=== PATIENT | male | born 1940 | race Asian ===

== ENCOUNTER 2020-11-16 18:27 | Inpatient (IN) | payer OTHER ==
[2020-11-16 20:34] LABS: BASO % 0.2 % (0-2.0); EOS % 1.5 % (0-4.5); HEMATOCRIT 48.4 % (35.4-49); HEMOGLOBIN 16.5 GM/dL (11.7-16.9); LYMPH % 30.3 % (8-40); MCH 30.3 pg (25.7-33.7); MCHC 34.1 g/dl (32.0-35.9); MEAN CELL VOLUME 88.9 fl (80-96); MEAN PLT VOLUME 9.1 fl (7.5-11.1); MONO % 6.7 % (3.8-10.2); NEUT % 61.3 % (42.8-82.8); PLATELET COUNT 249 K/MM3 (134-434); RBC 5.45 M/mm3 (4.00-5.60); RDW 13.6 % (11.9-15.9); WHITE BLOOD COUNT 9.8 K/mm3 (4.0-10.0)
[2020-11-16 20:48] LABS: CHLORIDE 103 mmol/L (98-107); POTASSIUM 4.7 mmol/L (3.5-5.1); SODIUM 141 mmol/L (136-145)
[2020-11-16 20:50] LABS: CALCIUM 9.6 mg/dL (8.5-10.1)
[2020-11-16 20:51] LABS: ANION GAP 7 MMOL/L (8-16); BLOOD UREA NITROGEN 25.9 mg/dL (7-18); CO2 30 mmol/L (21-32); GLUCOSE,RANDOM 101 mg/dL (74-106)
[2020-11-16 20:54] LABS: CREATININE 1.1 mg/dL (0.55-1.3); SGOT/AST 35 U/L (15-37); SGPT/ALT 30 U/L (13-61)
[2020-11-16 20:55] LABS: BILIRUBIN,TOTAL 0.9 mg/dL (0.2-1)
[2020-11-16 20:56] LABS: TOT PROT 7.7 g/dl (6.4-8.2)
[2020-11-16 20:57] LABS: ALK PHOS 81 U/L (45-117)
[2020-11-16] MEDS ORDERED: ACETAMINOPHEN 1000 MG/100 ML VIAL (NON FORMULARY) IVPB ONE (21:57)
[2020-11-16] MEDS ORDERED: FAMOTIDINE 20 MG/50 ML IVPB 20 MG/50 ML MG IVPB ONE ×2 (21:57→22:02)
[2020-11-16] MEDS ORDERED: ACETAMINOPHEN INJECTION 100 ML IVPB ONE (22:02)
[2020-11-16 22:06] LABS: EPI CELLS 5 /uL (0-25.1); HYALINE CASTS 1 /uL (0-3.1); URINE APPEARANCE CLEAR; URINE BACTERIA 186 /uL (0-1359); URINE BILIRUBIN NEGATIVE (NEGATIVE); URINE COLOR YELLOW; URINE GLUCOSE (UA) NEGATIVE (NEGATIVE); URINE KETONE NEGATIVE (NEGATIVE); URINE LEUK ESTERASE 3+ (NEGATIVE); URINE NITRITE NEGATIVE (NEGATIVE); URINE PROTEIN NEGATIVE (NEGATIVE); URINE RBC 18 /uL (0-23.9); URINE UROBILINOGEN 0.2 mg/dL (0.2-1.0); URINE WBC 517 /uL (0-25.8)
[2020-11-16] MEDS ORDERED: SODIUM CHLORIDE 1,000 ML IV SCH (22:45)
[2020-11-16] MEDS ORDERED: ONDANSETRON 4 MG/2 ML VIAL IVPB ONE (23:44)
[2020-11-16] MEDS ORDERED: LIDOCAINE VISCOUS 2% ORAL/TOP 20 ML UNIT-DOSE CUP MM ONE (23:44)
[2020-11-16] MEDS ORDERED: ONDANSETRON 4 MG/2 ML VIAL ONE (23:48)
[2020-11-16] MEDS ORDERED: LIDOCAINE HCL 2% JELLY 10 ML CARTRIDGE ONE ×2 (23:48→23:49)
[2020-11-17] MEDS ORDERED: SODIUM CHLORIDE 1,000 ML IV SCH ×2 (02:30→13:43)
[2020-11-17 08:09] LABS: CHLORIDE 104 mmol/L (98-107); POTASSIUM 4.2 mmol/L (3.5-5.1); SODIUM 139 mmol/L (136-145)
[2020-11-17 08:11] LABS: ALBUMIN 3.6 g/dl (3.4-5.0); ANION GAP 8 MMOL/L (8-16); CALCIUM 9.5 mg/dL (8.5-10.1); CO2 28 mmol/L (21-32); MAGNESIUM 2.1 mg/dL (1.8-2.4)
[2020-11-17 08:12] LABS: BLOOD UREA NITROGEN 20.8 mg/dL (7-18); GLUCOSE,RANDOM 99 mg/dL (74-106)
[2020-11-17 08:14] LABS: CREATININE 1.1 mg/dL (0.55-1.3); SGOT/AST 28 U/L (15-37); SGPT/ALT 27 U/L (13-61)
[2020-11-17 08:15] LABS: CHOLESTEROL 141 mg/dL (50-200)
[2020-11-17 08:16] LABS: LDL CHOLESTEROL (ONLY SJRH) 66 mg/dL (5-100); TOT PROT 6.9 g/dl (6.4-8.2); TRIGLYCERIDES 62 mg/dL (0-150)
[2020-11-17 08:17] LABS: BILIRUBIN,TOTAL 1.1 mg/dL (0.2-1)
[2020-11-17 08:18] LABS: ALK PHOS 76 U/L (45-117); HDL CHOLESTEROL 61 mg/dL (40-60)
[2020-11-17] MEDS ORDERED: cefTRIAXone SODIUM 1 GM VIAL ONE (09:30)
[2020-11-17] MEDS ORDERED: DEXTROSE 5%-WATER - 50 ML IVPB ONE (09:31)
[2020-11-17] MEDS: ENOXAPARIN NA (PORCINE) 40 MG/0.4 ML DISP.SYRIN SQ SCH (10:04)
[2020-11-17] MEDS: CEFTRIAXONE 1 GM in DEXTROSE 5%-WATER - 50 ML IVPB SCH (10:04)
[2020-11-17 10:26] LABS: BASO % 0.2 % (0-2.0); EOS % 0.6 % (0-4.5); HEMATOCRIT 46.9 % (35.4-49); HEMOGLOBIN 15.9 GM/dL (11.7-16.9); LYMPH % 15.7 % (8-40); MCH 30.1 pg (25.7-33.7); MCHC 33.9 g/dl (32.0-35.9); MEAN CELL VOLUME 88.9 fl (80-96); MEAN PLT VOLUME 9.1 fl (7.5-11.1); MONO % 5.3 % (3.8-10.2); NEUT % 78.2 % (42.8-82.8); PLATELET COUNT 242 K/MM3 (134-434); RBC 5.28 M/mm3 (4.00-5.60); RDW 13.5 % (11.9-15.9); WHITE BLOOD COUNT 12.1 K/mm3 (4.0-10.0)
[2020-11-17 10:33] LABS: INR 1.14 (0.83-1.09); PROTHROMBIN TIME (PATIENT) 13.7 SEC (9.7-13.0)
[2020-11-17 10:36] LABS: ACTIVATED PTT 31.7 SECONDS (25.2-36.5)
[2020-11-17 12:25] VITALS: BMI 19.9
[2020-11-17] MEDS ORDERED: LEVOTHYROXINE NA 25 MCG TABLET (FP) PO SCH (13:45)
[2020-11-17] MEDS ORDERED: PATIENT'S OWN MEDICATION (NON-FORMULARY) (Irbesartan [Irbesartan] 150 MG Tablet) PO SCH (13:45)
[2020-11-17] MEDS: DEXTROSE 5%-NORMAL SALINE 1,000 ML IV SCH (16:45)
[2020-11-17] MEDS: LEVOTHYROXINE SODIUM 100 MCG VIAL IVPUSH SCH (18:42)
[2020-11-17] MEDS: ROSUVASTATIN CA 10 MG TABLET (FP) PO SCH (21:05)
[2020-11-18] MEDS: LEVOTHYROXINE SODIUM 100 MCG VIAL IVPUSH SCH (06:14)
[2020-11-18 07:24] LABS: BASO % 0.4 % (0-2.0); EOS % 3.4 % (0-4.5); HEMATOCRIT 44.7 % (35.4-49); HEMOGLOBIN 15.2 GM/dL (11.7-16.9); LYMPH % 39.1 % (8-40); MCH 30.4 pg (25.7-33.7); MCHC 34.1 g/dl (32.0-35.9); MEAN CELL VOLUME 89.4 fl (80-96); MEAN PLT VOLUME 8.9 fl (7.5-11.1); MONO % 6.2 % (3.8-10.2); NEUT % 50.9 % (42.8-82.8); PLATELET COUNT 226 K/MM3 (134-434); RDW 13.5 % (11.9-15.9); WHITE BLOOD COUNT 7.3 K/mm3 (4.0-10.0)
[2020-11-18 07:53] LABS: POTASSIUM 4.2 mmol/L (3.5-5.1)
[2020-11-18 08:11] LABS: TOT PROT 6.6 g/dl (6.4-8.2)
[2020-11-18 08:40] LABS: ALBUMIN 3.3 g/dl (3.4-5.0); BLOOD UREA NITROGEN 16.7 mg/dL (7-18); MAGNESIUM 2.1 mg/dL (1.8-2.4)
[2020-11-18 08:41] LABS: CALCIUM 9.1 mg/dL (8.5-10.1)
[2020-11-18 08:44] LABS: CREATININE 1.1 mg/dL (0.55-1.3); PHOSPHOROUS 4.1 mg/dL (2.5-4.9)
[2020-11-18 08:45] LABS: BILIRUBIN,TOTAL 1.3 mg/dL (0.2-1)
[2020-11-18] MEDS ORDERED: cefTRIAXone SODIUM 1 GM VIAL ONE (09:01)
[2020-11-18] MEDS ORDERED: DEXTROSE 5%-WATER - 50 ML IVPB ONE (09:01)
[2020-11-18] MEDS: CEFTRIAXONE 1 GM in DEXTROSE 5%-WATER - 50 ML IVPB SCH (11:22)
[2020-11-18] MEDS: ENOXAPARIN NA (PORCINE) 40 MG/0.4 ML DISP.SYRIN SQ SCH (11:23)
[2020-11-18] MEDS: LOSARTAN POTASSIUM 50 MG TABLET PO SCH (11:23)
[2020-11-18] MEDS: LEVOTHYROXINE NA 25 MCG TABLET (FP) PO SCH (13:37)
[2020-11-18] MEDS ORDERED: CEFTRIAXONE 1 GM in DEXTROSE 5%-WATER - 50 ML IVPB SCH (16:00)
[2020-11-18] MEDS: DEXTROSE 5%-NORMAL SALINE 1,000 ML IV SCH (20:06)
[2020-11-18] MEDS: ROSUVASTATIN CA 10 MG TABLET (FP) PO SCH (20:59)
[2020-11-18] MEDS ORDERED: MELATONIN 5 MG TABLETS PO ONE (23:06)
[2020-11-19] MEDS: LEVOTHYROXINE NA 25 MCG TABLET (FP) PO SCH (05:59)
[2020-11-19 06:40] VITALS: BP 109/71; PULSE 66; TEMP 98.4
[2020-11-19] MEDS ORDERED: LEVOTHYROXINE NA 25 MCG TABLET (FP) PO SCH (07:00)
[2020-11-19 07:39] LABS: BASO % 0.7 % (0-2.0); HEMATOCRIT 44.8 % (35.4-49); HEMOGLOBIN 15.1 GM/dL (11.7-16.9); LYMPH % 44.8 % (8-40); MCHC 33.8 g/dl (32.0-35.9); MEAN CELL VOLUME 88.8 fl (80-96); MEAN PLT VOLUME 9.1 fl (7.5-11.1); MONO % 7.6 % (3.8-10.2); NEUT % 43.9 % (42.8-82.8); PLATELET COUNT 242 K/MM3 (134-434); RBC 5.05 M/mm3 (4.00-5.60); RDW 13.4 % (11.9-15.9); WHITE BLOOD COUNT 6.7 K/mm3 (4.0-10.0)
[2020-11-19 08:07] LABS: ALBUMIN 3.5 g/dl (3.4-5.0); BLOOD UREA NITROGEN 14.5 mg/dL (7-18); CALCIUM 9.1 mg/dL (8.5-10.1); MAGNESIUM 2.2 mg/dL (1.8-2.4)
[2020-11-19 08:09] LABS: TOT PROT 6.7 g/dl (6.4-8.2)
[2020-11-19 08:10] LABS: CREATININE 1.1 mg/dL (0.55-1.3)
[2020-11-19 08:11] LABS: PHOSPHOROUS 4.3 mg/dL (2.5-4.9)
[2020-11-19 08:14] LABS: BILIRUBIN,TOTAL 1.1 mg/dL (0.2-1)
[2020-11-19] MEDS ORDERED: cefTRIAXone SODIUM 1 GM VIAL ONE (08:34)
[2020-11-19] MEDS ORDERED: DEXTROSE 5%-WATER - 50 ML IVPB ONE (08:35)
[2020-11-19] MEDS: LOSARTAN POTASSIUM 50 MG TABLET PO SCH ×2 (08:49→09:48)
[2020-11-19] MEDS: CEFTRIAXONE 1 GM in DEXTROSE 5%-WATER - 50 ML IVPB SCH ×2 (08:49→09:03)
[2020-11-19] MEDS: ENOXAPARIN NA (PORCINE) 40 MG/0.4 ML DISP.SYRIN SQ SCH (09:03)
== END 2020-11-19 10:00 | disposition home or self-care (01) | DRG 389 ==
LOC: JER 18:27 → JERBED 23:59 → J7W 11-17 06:45
PROVIDERS: ADMIT Internal Medicine; ATTEND Internal Medicine
PROC: 0D9670Z Drainage of Stomach with Drainage Device, Via Natural or Artificial Opening (ICD-10-PCS; principal; 2020-11-16)
DX: K56.50 Intestinal adhesions [bands], unspecified as to partial versus complete obstruction (principal); N39.0 Urinary tract infection, site not specified; E03.9 Hypothyroidism, unspecified; R31.29 Other microscopic hematuria; I10 Essential (primary) hypertension
CPT/HCPCS: 36415; 71045-TC-FY; 74019-TC-FY; 74177-TC; 80053; 80061; 81003; 82550; 82553; 83721; 83735; 84100; 84443; 84484; 85025; 85610; 85730; 87086; 93005; 93010; 99285-25; C9803; J0131; Q9967; U0003; U0005

== ENCOUNTER 2022-10-08 12:06 | Emergency (ER) | payer OTHER ==
[2022-10-08 12:27] VITALS: BP 152/68; PULSE 68; RESP 17; TEMP 97.3
== END 2022-10-08 15:05 | disposition home or self-care (01) ==
LOC: JERFT 12:06
DX: S70.01XA Contusion of right hip, initial encounter (principal); W19.XXXA Unspecified fall, initial encounter
CPT/HCPCS: 73521-TC-FY; 73552-TC-RT-FY; 99284-25